=== PATIENT | male | born 2000 | race Two or more races ===

== ENCOUNTER 2025-04-14 14:42 | Outpatient (CLI) | payer OTHER ==
[2025-04-14 15:48] LABS: URINE APPEARANCE Clear; URINE BILIRRUBIN Negative (NEGATIVE); URINE COLOR Dark Yellow; URINE GLUCOSE Negative (NEGATIVE); URINE KETONE Trace (NEGATIVE); URINE LEUKOCYTE Negative; URINE NITRATE Negative; URINE PROTEIN Trace (NEGATIVE)
[2025-04-14 15:52] LABS: URINE EPITHELIAL CELLS 4.1 uL (0.0-38.8); URINE RBC 32.8 uL (0.0-20.8); URINE WBC 7.5 uL (0.0-23.2)
[2025-04-14 15:53] LABS: BASO % 0.6 % (0.1-1.2); EOS # 0.04 (0.04-0.54); EOS % 0.5 % (0.7-7.0); HEMATOCRIT 39.7 % (40.1-51.0); HEMOGLOBIN 13.4 g/dL (13.7-17.5); LYMPH # 2.61 (1.18-3.74); LYMPH % 29.9 % (19.3-53.1); MEAN CORPUSCULAR HEMOGLOBIN 28.6 pg (25.6-32.2); NEUT # 5.28 (1.56-6.13); NEUT % 60.4 % (34.0-71.1); PLATELET COUNT 250 K/uL (163-369); RED BLOOD COUNT 4.69 M/uL (4.63-6.08); RED CELL DISTRIBUTION WIDTH 12.9 % (11.6-14.4)
[2025-04-14 15:54] LABS: URINE BACTERIA 1.2 uL (0.0-1933); URINE BLOOD Trace
[2025-04-14 16:19] LABS: ALBUMIN 4.1 gm/dL (3.4-5.0); BILIRUBIN TOTAL 1.03 mg/dL (0.3-1.2); CALCIUM 9.4 mg/dL (8.5-10.1); CHOL HDL RATIO 4.7 (0-5.0); CREATININE SERUM 0.93 mg/dL (0.70-1.30); GFR 100.69; GLOBULINA 4.2 G/DL (2.4-3.5); POTASSIUM 3.79 mEq/L (3.5-5.1); TOTAL PROTEIN 8.3 gm/dL (6.4-8.2)
[2025-04-18 07:08] LABS: hav igm Negative (Negative); hcv Non Reactive (Non Reactive); hep b c Negative (Negative); hep b s ag Negative (Negative)
[2025-04-18 23:07] LABS: chla t Negative (Negative); neiss Negative (Negative)
== END 2025-04-14 14:45 | disposition home or self-care (01) ==
LOC: LAB 14:42
PROVIDERS: ATTEND General Practice
DX: Z20.6 Contact with and (suspected) exposure to human immunodeficiency virus [HIV] (principal); Z20.5 Contact with and (suspected) exposure to viral hepatitis; Z11.3 Encounter for screening for infections with a predominantly sexual mode of transmission

== ENCOUNTER 2025-08-06 23:18 | Emergency (ER) | payer OTHER ==
[~2025-08-06] VITALS: Ht 180.3 cm; Wt 111.1 kg
[2025-08-06] MEDS ORDERED: DEPAKOTE ER500 MG PO (23:28)
[2025-08-06] MEDS ORDERED: ADDERALL 20 MG20 MG PO (23:28)
[2025-08-07] MEDS ORDERED: TRAMADOL HCL 50 MG TABLET PO ONE (00:15)
[2025-08-07] MEDS ORDERED: KETO10TA2 PO (02:52)
== END 2025-08-07 03:05 ==
LOC: ER 23:19
DX: G89.11 Acute pain due to trauma (principal); M25.561 Pain in right knee; S09.8XXA Other specified injuries of head, initial encounter; V49.9XXA Car occupant (driver) (passenger) injured in unspecified traffic accident, initial encounter; Y93.89 Activity, other specified; Y92.413 State road as the place of occurrence of the external cause

== ENCOUNTER → 2025-09-06 11:21 | Outpatient (CLI) | payer OTHER ==
[~2025-09-06 11:21] MED LIST: ADDERALL 20 MG20 MG PO; DEPAKOTE ER500 MG PO; KETO10TA2 PO
[2025-09-06 11:53] LABS: BASO % 0.9 % (0.1-1.2); EOS # 0.16 (0.04-0.54); EOS % 2.0 % (0.7-7.0); LYMPH # 1.92 (1.18-3.74); LYMPH % 24.5 % (19.3-53.1); MEAN PLATELET VOLUME 9.70 fl (9.4-12.4); MONO # 0.70 (0.24-0.82); MONO % 8.9 % (4.7-12.5); NEUT # 4.97 (1.56-6.13); NEUT % 63.3 % (34.0-71.1); RED CELL DISTRIBUTION WIDTH 12.5 % (11.6-14.4)
[2025-09-06 13:07] LABS: ALT/SGPT 43.0 U/L (12-78); AST/SGOT 12.0 U/L (15-37); BILIRUBIN TOTAL 0.85 mg/dL (0.3-1.2); BUN CREA RATIO 11.0 (7.0-25.0); CHOL HDL RATIO 4.8 (0-5.0); CREATININE SERUM 0.87 mg/dL (0.70-1.30); FE 110.0 ug/dl (65-175); GFR 107.81; GLOBULINA 3.9 G/DL (2.4-3.5); GLUCOSE FASTING 81.0 mg/dL (65-100); HDL 35.0 mg/dl (40-60); LDL 103.0 mg/dl (0-130); OSMOLALITY SERUM 281.0 MOSM/KG (275-295); T4 TOTAL 7.41 UG/DL (4.5-12.1); TSH 1.4 uIU/mL (0.358-3.74); VLDL 30.0 (0-39)
[2025-09-06 13:14] LABS: FOLIC ACID 9.1 ng/ml (4.78-20); T3 TOTAL 1.26 ng/ml (0.846-2.02); VITAMIN D3 25 HYDROXY 15.73 ng/ml (30-120)
== END | disposition home or self-care (01) ==
LOC: LAB 11:21
DX: D46.4 Refractory anemia, unspecified (principal); E11.9 Type 2 diabetes mellitus without complications; E03.9 Hypothyroidism, unspecified; E54 Ascorbic acid deficiency; E55.9 Vitamin D deficiency, unspecified; D51.9 Vitamin B12 deficiency anemia, unspecified; B96.81 Helicobacter pylori [H. pylori] as the cause of diseases classified elsewhere; D63.8 Anemia in other chronic diseases classified elsewhere; Z29.81 Encounter for HIV pre-exposure prophylaxis

== ENCOUNTER 2025-09-27 12:26 | Outpatient (CLI) | payer OTHER ==
[2025-09-27 13:52] LABS: BASO % 0.7 % (0.1-1.2); EOS # 0.10 (0.04-0.54); EOS % 1.0 % (0.7-7.0); LYMPH # 3.33 (1.18-3.74); LYMPH % 34.7 % (19.3-53.1); MEAN PLATELET VOLUME 10.20 fl (9.4-12.4); MONO # 0.86 (0.24-0.82); MONO % 8.9 % (4.7-12.5); NEUT # 5.20 (1.56-6.13); NEUT % 54.2 % (34.0-71.1); RED CELL DISTRIBUTION WIDTH 12.3 % (11.6-14.4)
[2025-09-27 13:56] LABS: URINE APPEARANCE Clear; URINE BILIRRUBIN Negative (NEGATIVE); URINE BLOOD Trace; URINE COLOR Dark Yellow; URINE GLUCOSE Negative (NEGATIVE); URINE KETONE Trace (NEGATIVE); URINE LEUKOCYTE Negative; URINE NITRATE Negative; URINE PROTEIN Trace (NEGATIVE); URINE UROBILINOGEN 1.0 E.U./dl
[2025-09-27 14:00] LABS: URINE BACTERIA 36.0 uL (0.0-1933); URINE EPITHELIAL CELLS 10.1 uL (0.0-38.8); URINE RBC 16.4 uL (0.0-20.8); URINE WBC 9.6 uL (0.0-23.2)
[2025-09-27 14:34] LABS: URINE CAST 0.29 uL (0.0-1.40)
[2025-09-27 15:29] LABS: ALT/SGPT 69.0 U/L (12-78); AST/SGOT 25.0 U/L (15-37); BILIRUBIN TOTAL 0.54 mg/dL (0.3-1.2); BILIRUBIN,CONJUGATED 0.17 mg/dL (0.0-0.2); BUN CREA RATIO 11.0 (7.0-25.0); CHOL HDL RATIO 5.4 (0-5.0); CREATININE SERUM 1.06 mg/dL (0.70-1.30); GFR 85.83; GLOBULINA 4.5 G/DL (2.4-3.5); GLUCOSE FASTING 76.0 mg/dL (65-100); HDL 30.0 mg/dl (40-60); LDL 97.0 mg/dl (0-130); OSMOLALITY SERUM 280.0 MOSM/KG (275-295); T4 TOTAL 10.05 UG/DL (4.5-12.1); TSH 1.52 uIU/mL (0.358-3.74); VLDL 35.0 (0-39)
[2025-09-28 10:42] LABS: T3 TOTAL 1.17 ng/ml (0.846-2.02); VITAMIN D3 25 HYDROXY 18.32 ng/ml (30-120)
[2025-09-29 08:07] LABS: HEPATITIS A IGM Negative (Negative); HEPATITIS B SURFACE ANTIBODY Reactive (.); HEPATITIS C VIRUS ANTIBODY Non Reactive (Non Reactive)
[2025-09-29 10:11] LABS: PROGESTERONA 0.2 ng/mL (0.0-0.5)
== END 2025-09-27 12:40 | disposition home or self-care (01) ==
LOC: LAB 12:26
DX: A64 Unspecified sexually transmitted disease (principal); Z11.4 Encounter for screening for human immunodeficiency virus [HIV]; Z20.6 Contact with and (suspected) exposure to human immunodeficiency virus [HIV]; Z20.5 Contact with and (suspected) exposure to viral hepatitis; Z13.9 Encounter for screening, unspecified; N39.0 Urinary tract infection, site not specified; E78.2 Mixed hyperlipidemia; E78.1 Pure hyperglyceridemia; E78.5 Hyperlipidemia, unspecified; R16.0 Hepatomegaly, not elsewhere classified; Z11.59 Encounter for screening for other viral diseases; B18.1 Chronic viral hepatitis B without delta-agent; B18.2 Chronic viral hepatitis C; E03.9 Hypothyroidism, unspecified; E55.9 Vitamin D deficiency, unspecified; E34.9 Endocrine disorder, unspecified

== ENCOUNTER 2025-09-28 08:04 | Outpatient (CLI) | payer OTHER | END 2025-09-28 15:08 | disposition home or self-care (01) | LOC: LAB 08:04 | DX: A64 Unspecified sexually transmitted disease (principal); A51.5 Early syphilis, latent; N39.0 Urinary tract infection, site not specified; Z13.9 Encounter for screening, unspecified; D64.9 Anemia, unspecified; E78.2 Mixed hyperlipidemia; E11.9 Type 2 diabetes mellitus without complications; R16.0 Hepatomegaly, not elsewhere classified; B18.2 Chronic viral hepatitis C; E03.9 Hypothyroidism, unspecified; E34.9 Endocrine disorder, unspecified; E55.9 Vitamin D deficiency, unspecified ==